=== PATIENT | female | born 1950 | race Caucasian/White ===

== ENCOUNTER 2018-08-02 15:20 | Emergency (ER) | payer MEDICARE ==
--- NOTE | 2018-08-02 15:40 | UC ---
Skin Complaint HPI - HPI Summary HPI Summary: left should was sore a couple of days ago--yesterday she noticed a red vesicular rash-- - History of Current Complaint Chief Complaint: UCSkin Time Seen by Provider: 08/02/18 15:23 Stated Complaint: POSS. SHINGLES Hx Obtained From: Patient ?: No Onset/Duration: Sudden Onset, Lasting Days - 2 Timing: Constant Onset Severity: Mild Current Severity: Mild Pain Intensity: 2 Pain Scale Used: 0-10 Numeric Location: Discrete - left shoulder Character: Redness Aggravating Factor(s): Nothing Alleviating Factor(s): Nothing Associated Signs & Symptoms: Positive: Rash, Tenderness - Allergy/Home Medications Allergies/Adverse Reactions: Allergies Allergy/AdvReac Type Severity Reaction Status Date / Time No Known Allergies Allergy Verified 08/02/18 15:45 Home Medications: Home Medications Fluticasone DISKUS 100 MCG(NF) [Flovent Diskus 100 MCG(NF)] 125 mcg INH DAILY [History Confirmed 08/02/18] Losartan TAB* [Cozaar TAB*] 25 mg PO DAILY 08/02/18 [History Confirmed 08/02/18] Umeclidinium [place] [Incruse Ellipta] 1 puff INH DAILY 08/02/18 [History Confirmed 08/02/18] hydroCHLOROthiazide [Hydrochlorothiazide] 1 each PO DAILY 08/02/18 [History Confirmed 08/02/18] Review of Systems Constitutional: Negative Skin: Rash Eyes: Negative ENT: Negative Respiratory: Negative Cardiovascular: Negative Gastrointestinal: Negative Genitourinary: Negative Motor: Negative Neurovascular: Negative Musculoskeletal: Negative Neurological: Negative Psychological: Negative Is Patient Immunocompromised?: No All Other Systems Reviewed And Are Negative: Yes PMH/Surg Hx/FS Hx/Imm Hx Previously Healthy: No Cardiovascular History: Hypertension - Family History Known Family History: Positive: None - Social History 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 Negative: Trismus , Muffled voice, Hoarse voice Dental Exam: Normal Neck exam: Normal Neck: Positive: Supple, Nontender Respiratory Exam: Normal Respiratory: Positive: Chest non-tender, No respiratory distress, No accessory muscle use Cardiovascular Exam: Normal Cardiovascular: Positive: RRR, Pulses Normal, Brisk Capillary Refill Musculoskeletal Exam: Normal Musculoskeletal: Positive: Strength Intact, ROM Intact, No Edema Neurological Exam: Normal Neurological: Positive: Alert, Muscle Tone Normal, Fatigued Psychological Exam: Normal Skin Exam: Normal Skin: Positive: Other - red vesiclar rash a top of left shoulder Course/Dx - Course Course Of Treatment: mild soap and water wash, tylenol or Ibuprofen for pain, [place] follow with pcp prn - Diagnoses Provider Diagnoses: Shingles left shoulder Discharge - Sign-Out/Discharge Documenting (check all that apply): Patient Departure All imaging exams completed and their final reports reviewed: No Studies - Discharge Plan Condition: Stable Disposition: HOME Prescriptions: ValACYclovir (*) [Valtrex 1 GM(*)] 1 gm PO TID 7 Days #21 tab Patient Education Materials: [place] (ED) Referrals: No Primary Care Phys,NOPCP [Primary Care Provider] - Additional Instructions: Follow with your primary care provider return as needed - Billing Disposition and Condition Condition: STABLE Disposition: Home - Attestation Statements Provider Attestation: Per institutional requirements, I have reviewed the chart, however, I was not consulted specifically or made aware of this patient by the midlevel provider. I did not personally evaluate, interact with , or disposition this patient.
[2018-08-02 15:47] VITALS: BP 132/60
== END 2018-08-02 15:49 | disposition home or self-care (01) ==
LOC: UCCORT 15:20
DX: B02.9 Zoster without complications (principal); I10 Essential (primary) hypertension
CPT/HCPCS: 99202; G0463